=== PATIENT | male | born 1965 | race Caucasian/White ===

== ENCOUNTER 2021-04-11 06:58 | Day surgery (SDC) | payer OTHER, SELFPAY ==
[2021-03-21 13:34] VITALS: BMI 30.8
[2021-04-11] VITALS (7 sets, daily range): BP systolic 113–154; BP diastolic 65–92; PULSE 49–63; RESP 16; TEMP 36.1–36.6; O2SAT 98–100; BMI 30.1
--- NOTE | 2021-04-11 07:00 | HP.PCM_ITS ---
History and Physical Date of Admission: 04/11/21 Date of Service: 03/21/21 Intake Vital Signs 02/28/21 15:11 03/21/21 13:34 03/21/21 16:32 Height 6 ft 1 in 6 ft 1 in Weight: 233 lb 8 oz BMI 30.8 BP 151/101 H 134/89 H Blood Pressure Location Rt brachial Rt brachial Position Sitting Sitting Respiration 16 Pulse 60 Pulse Source Monitor Temp 98.0 F Temp Source Temporal Pulse Oximetry (%) 97 Oxygen Delivery Method room air Intake Visit Reasons: C-Scope Allergies No Known Allergies Allergy (Verified 03/21/21 13:35) Medications gabapentin 300 mg PO TIDCM 07/17/13 [History Confirmed 03/21/21] tramadol 50 mg PO Q6H PRN PRN 07/17/13 [History Confirmed 03/21/21] alogliptin 25 mg tablet 25 mg PO DAILY 03/21/21 [History Confirmed 03/21/21] amoxicillin 875 mg-potassium clavulanate 125 mg tablet 1 tab PO BID 03/21/21 [History Confirmed 03/21/21] ascorbate calcium (vitamin C) 500 mg tablet 500 mg PO BID 03/21/21 [History Confirmed 03/21/21] atorvastatin 40 mg tablet 40 mg PO DAILY 03/21/21 [History Confirmed 03/21/21] carvedilol 25 mg tablet 25 mg PO BID 03/21/21 [History Confirmed 03/21/21] cholecalciferol (vitamin D3) 25 mcg (1,000 unit) capsule 25 mcg PO DAILY 03/21/21 [History Confirmed 03/21/21] montelukast 10 mg tablet 10 mg PO DAILY 03/21/21 [History Confirmed 03/21/21] omeprazole 20 mg tablet,delayed release 20 mg PO DAILY 03/21/21 [History Confirmed 03/21/21] pantoprazole 40 mg tablet,delayed release 40 mg PO DAILY #30 tab 03/21/21 [Rx Confirmed 03/21/21] tamsulosin 0.4 mg capsule 0.4 mg PO DAILY 03/21/21 [History Confirmed 03/21/21] PFSH Medical History Abdominal pain Anxiety Arthritis Barretts esophagus Depression Diabetes Dysphagia Fatigue GERD (gastroesophageal reflux disease) History of back problems History of - (~09/2020) Hx of esophageal ulcer Hypertension Nausea Numbness and tingling SOB (shortness of breath) Surgical History History of back surgery History of colonoscopy (~2017) History of esophagogastroduodenoscopy (EGD) (~2017) History of knee surgery History of mandibular surgery History of repair of hiatal hernia History of tonsillectomy (~1968) Family History Mother Arthritis Heart disease Hypertension CVA (cerebral vascular accident) High blood cholesterol Father Skin cancer Arthritis Brother Arthritis Sister Arthritis Social History Smoking Status: Never smoker alcohol intake: never substance use type: does not use caffeine: Yes what type of physical activity do you participate in: none frequency: does not exercise HPI HPI HPI: ELIANA GALO, is a 56 M who presents to the office today for EGD and colonoscopy. Patient previously had Del Valle's esophagus previously diagnosed. Patient's last EGD was in 2016 did not show Del Valle's at that time. Patient states in December 2017 at the [facility] in [place] patient did have a hiatal hernia repair with esophageal ablation per patient. Patient is on omeprazole 20 mg p.o. daily and states he still has the burning up his esophagus bloated and occasional abdominal pain daily. Patient had a colonoscopy in 2014 which showed a polyp unsure of the exact path per patient benign. Patient denies any family history of colon cancer. Patient states he has bowel movement about every 3 days. States that occasionally can be hard. Patient states he drinks about 5 bottles of 20 ounces of water daily. Unsure how much fiber he gets. Patient did have Covid in September 2020 and got his second dose of them and during vaccine 02/17/21. ROS General General: Yes fatigue; No weight change Cardio Cardiovascular: No chest pain Gastro Gastrointestinal: Yes abdominal pain, No diarrhea, No constipation, No blood in stool, Yes acid reflux, No hemorrhoids, No ulcers, No gallbladder problem and No black,tarry stools Additional Details: Positive nausea, denies vomiting Exam Const General: cooperative, healthy appearing, comfortable and no acute distress Neck Neck: normal visual inspection Resp Effort & Inspection: normal respiratory effort Cardio Rate: regular rate GI Inspection: non-distended Palpation: soft, no guarding and nontender Skin General: no rashes or lesions noted Neuro General: patient oriented x3 Psych Affect: normal affect COVID (Procedure Consent) Procedure Criteria Procedure Criteria: Yes Elective The surgeon/proceduralist and patient have discussed in detail the risk of exposure to and/or potential harm posed by the COVID-19 virus with having a surgery/procedure at this time versus the risk of delaying the surgery/procedure. It is not possible to know either the risk of delaying the surgery or procedure or chance of getting an infection with perfect accuracy, but a joint decision was made between the patient and the surgeon/proceduralist to proceed at this time with the scheduled surgery/procedure as indicated on the consent form. Assessment and Plan Assessment and Plan (1) GERD (gastroesophageal reflux disease): Status: Acute Comment: Also history of Del Valle's status post hiatal hernia repair in 2018 at [facility] in [place] and previous ablation prior to repair (2) Hx of colonic polyps: Status: Acute Plan - Dr. Paige Pitts MD: Discussed with patient we will try to change to Protonix 40 mg p.o. daily from omeprazole 20 mg daily as patient states he has reflux symptoms daily. I have discussed the above with the patient. I have offered the patient EGD and colonoscopy for evaluation. I have explained the risks/benefits of the procedure and described the procedure. I have discussed the risks with the patient, including but not limited to: infection, bleeding, perforation of the GI tract requiring emergency surgery, inability to complete the procedure, injury to any internal organs, complications of anesthesia, etc. - the patient understands and agrees to proceed. I have answered all the patient's questions to the patient's satisfaction and the patient has no further questions. The patient has been given instructions for the colon cleansing preparation. 2 days of clears, moviprep sent to patient already from [facility]. Paige Pitts M.D. Pager: [phone] [facility] [address] [place] [address], [address] [place] [address] Office: [phone] Plan Details Other Medications: New: pantoprazole 40 mg PO DAILY 30 tabs 2RF Other Orders: Orders: Colonoscopy 03/21/21 EGD 03/21/21 Coding Level of Care Code Off vis,new,level 3 Diagnoses GERD (gastroesophageal reflux disease) K21.9 Hx of colonic polyps Z86.010 03/22/21 0844<Electronically signed by Paige Pitts MD>Date Paige Pitts MD
[2021-04-11] MEDS: Lactated Ringers 1,000 ML 100 ML IV (07:56)
[2021-04-11 08:25] LABS: Bedside Glucose 122 mg/dL (70-110)
--- NOTE | 2021-04-11 08:45 | IMM_PTH ---
PATIENT: ELIANA GALO LOC: EN U#:[id number] AGE/SX: 56/M ROOM: RE04/11/[address]: Dr. Paige Pitts MD : 1965 BED: DIS: 04/11/2021 SPEC #: [id number] RECD: 04/11/21 14:08 STATUS: MERLIN REFarnaz #: [id number] JUSTUS: 04/11/21 08:[address]: Paige Pitts DEPT: IMMUNOHISTOCHEMISTRY RECD BY: Beti Cortez ENTERED: 04/11/21 14:09 SP TYPE: IMMUNO OTHR DR: [facility] Tissues: A - Stomach, NOS Procedures: H Pylori (initial) PHYSICIAN & INSTITUTION [place] [id number] SPECIMEN INFORMATION: Tissue Source: A ? Antrum biopsy Clinical Info: GERD, history of colon polyps Specimen Number: [id number] CPT code: 37460 METHODOLOGY: Deparaffinized sections of prefer/formalin-fixed tissue or PAP/DQ stained slides are incubated with monoclonal/polyclonal antibodies/oligonucleotide probes. Localization is made via biotin free immunoperoxidase method. Appropriate controls are performed and reacted as expected. Results on target cell population are indicated in the following table: RESULTS: ANTIBODY / CLONE RESULT Block A H Pylori (polyclonal) negative These tests were developed and their performance characteristics determined by [facility]. They may not have been cleared or approved by the U.S. Food and Drug Administration. The FDA has determined that such clearance or approval is not necessary. INTERPRETATION: A. Antrum biopsy: Negative for Helicobacter pylori organisms. AM:aisha 04/12/2021
--- NOTE | 2021-04-11 08:45 | EGD_PTH ---
PATIENT: ELIANA GALO LOC: EN U#:[id number] AGE/SX: 56/M ROOM: RE04/11/[address]: Dr. Paige Pitts MD : 1965 BED: DIS: 04/11/2021 SPEC #: [id number] RECD: 04/11/21 11:15 STATUS: [facility] CESAR #: [id number] JUSTUS: 04/11/21 08:[address]: Paige Pitts DEPT: SURGICAL PATHOLOGY RECD BY: Elly Camargo ENTERED: 04/11/21 13:52 SP TYPE: EGD BIOPSY SURYA DR: [facility] Tissues: A - Gastric mucous membrane B - Esophagus, NOS C - Descending colon Procedures: Special Stain Group II Surgery Specimen Level IV Alcian Blue/PAS (control) HEADER OPERATION: Colonoscopy, EGD ([facility]) PRE-OP DIAGNOSIS: GERD, history of colonic polyps TISSUE SUBMITTED: A - Antrum biopsy for histo and H. pylori, B - Distal esophagus/GE junction biopsy, C - Descending polyp biopsy MICROSCOPIC DIAGNOSIS A. Gastric antrum, biopsy: Mild chronic gastritis. See comment. B. Distal esophagus/GE junction, biopsy: Gastric mucosa with mild chronic inflammation. No evidence of goblet cell metaplasia. See comment. C. Descending colon polyp, biopsy: Tubular adenoma. AM:aisha 04/12/2021 COMMENT A. The results of immunohistochemistry for Helicobacter pylori will be reported separately ([id number]). B. Alcian blue/PAS stain with matched control supports the above diagnosis. MICROSCOPIC DESCRIPTION Slides are reviewed. GROSS DESCRIPTION A - Received in fixative is one container labeled with the patient's name and designated antrum biopsy. The specimen consists of one irregular fragment of light kennedy soft tissue that measures 0.4 x 0.3 x 0.1 cm. The specimen is totally submitted in one cassette. B - Received in fixative is one container labeled with the patient's name and designated distal esophagus/GE junction biopsy. The specimen consists of one irregular fragment of light kennedy soft tissue that measures 0.4 x 0.3 x 0.1 cm. The specimen is totally submitted in one cassette. C - Received in fixative is one container labeled with the patient's name and designated descending polyp biopsy. The specimen consists of multiple irregular fragments of light kennedy soft tissue that in aggregate measure 1 x 0.2 x 0.1 cm. The specimen is totally submitted in one cassette. / SJ:rg 04/11/21 TC:5 CPT: 06595 x3, 95384
--- NOTE | 2021-04-11 09:30 | OP.EGD_ITS ---
Patient Name: Francois Marquez Procedure Date: 04/11/2021 8:43 AM Date of : 1965 Age: 56 Procedure: Upper GI endoscopy Indications: Dysphagia Providers: Paige Pitts MD Referring MD: [facility] Medicines: Monitored Anesthesia Care Patient Profile: This is a 56 year old male. He is status post laparoscopic antireflux surgery within the past several years. Complications: No immediate complications. Procedure: Pre-Anesthesia Assessment: - Prior to the procedure, a History and Physical was performed, and patient medications and allergies were reviewed. The patient's tolerance of previous anesthesia was also reviewed. The risks and benefits of the procedure and the sedation options and risks were discussed with the patient. All questions were answered, and informed consent was obtained. Prior Anticoagulants: The patient has taken no previous anticoagulant or antiplatelet agents. ASA Grade Assessment: Per anesthesia. After reviewing the risks and benefits, the patient was deemed in satisfactory condition to undergo the procedure. After obtaining informed consent, the endoscope was passed under direct vision. Throughout the procedure, the patient's blood pressure, pulse, and oxygen saturations were monitored continuously. The gastroscope was introduced through the mouth, and advanced to the second part of duodenum. The upper GI endoscopy was accomplished without difficulty. The patient tolerated the procedure well. Scope In: 8:52:18 AM Scope Out: 8:56:52 AM Total Procedure Duration Time 0 hours 4 minutes 34 seconds Findings: The Z-line was irregular and was found 40 cm from the incisors. Biopsies were taken with a cold forceps for histology. Mildly erythematous mucosa without bleeding was found in the gastric antrum. Biopsies were taken with a cold forceps for histology. Biopsies were taken with a cold forceps for Helicobacter pylori cultures. The examined duodenum was normal. The cardia and gastric fundus were normal on retroflexion. Impression: - Z-line irregular, 40 cm from the incisors. Biopsied. - Erythematous mucosa in the antrum. Biopsied. - Normal examined duodenum. Recommendation: - Await pathology results. - Discharge patient to home. - Resume previous diet. - Continue present medications. - Await pathology results. Procedure Code(s): --- Professional --- 20851, Esophagogastroduodenoscopy, flexible, transoral; with biopsy, single or multiple Diagnosis Code(s): --- Professional --- K22.8, Other specified diseases of esophagus K31.89, Other diseases of stomach and duodenum R13.10, Dysphagia, unspecified CPT copyright 2017 [employer]. All rights reserved. The codes documented in this report are preliminary and upon student loan counselor review may be revised to meet current compliance requirements. MD Paige Allen MD 04/11/2021 9:30:23 AM This report has been signed electronically. Number of Addenda: 0 Note Initiated On: 04/11/2021 8:43 AM
--- NOTE | 2021-04-11 09:31 | OP.CCLET_ITS ---
04/11/2021 [facility] Re : Upper GI endoscopy procedure for [facility] This procedure was performed on Sunday, April 11, 2021. My impressions and recommendations are as follows: Impressions : - Z-line irregular, 40 cm from the incisors. Biopsied. - Erythematous mucosa in the antrum. Biopsied. - Normal examined duodenum. Recommendations : - Await pathology results. - Discharge patient to home. - Resume previous diet. - Continue present medications. - Await pathology results. My findings are described in the full procedure note, which is enclosed. If I can be of further assistance, please feel free to contact me at Doctor phone number(s): , Work: . Sincerely, MD Paige Allen MD 04/11/2021 9:30:23 AM This report has been signed electronically.
--- NOTE | 2021-04-11 09:34 | OP.COLON_ITS ---
Patient Name: Francois Marquez Procedure Date: 04/11/2021 8:58 AM Date of : 1965 Age: 56 Procedure: Colonoscopy Indications: High risk colon cancer surveillance: Personal history of colonic polyps Providers: Paige Pitts MD Referring MD: [facility] Medicines: Monitored Anesthesia Care Patient Profile: This is a 56 year old male. He is status post laparoscopic antireflux surgery within the past several years. Last Colonoscopy: 2018. Complications: No immediate complications. Procedure: Pre-Anesthesia Assessment: - Prior to the procedure, a History and Physical was performed, and patient medications and allergies were reviewed. The patient's tolerance of previous anesthesia was also reviewed. The risks and benefits of the procedure and the sedation options and risks were discussed with the patient. All questions were answered, and informed consent was obtained. Prior Anticoagulants: The patient has taken no previous anticoagulant or antiplatelet agents. ASA Grade Assessment: Per anesthesia. After reviewing the risks and benefits, the patient was deemed in satisfactory condition to undergo the procedure. After I obtained informed consent, the scope was passed under direct vision. Throughout the procedure, the patient's blood pressure, pulse, and oxygen saturations were monitored continuously. The Colonoscope was introduced through the anus and advanced to the cecum, identified by the ileocecal valve. The colonoscopy was somewhat difficult due to poor endoscopic visualization. Successful completion of the procedure was aided by lavage. The patient tolerated the procedure well. The quality of the bowel preparation was good except the sigmoid colon was poor. Scope In: 8:59:28 AM Scope Withdrawal Time 0 hours 10 minutes 50 seconds Scope Out: 9:20:08 AM Total Procedure Duration Time 0 hours 20 minutes 40 seconds Findings: The perianal and digital rectal examinations were normal. A less than 5 mm polyp was found in the descending colon. The polyp was sessile. The polyp was removed with a cold biopsy forceps. Resection and retrieval were complete. poor prep in sigmoid and only adequate in rest of colon Impression: - One less than 5 mm polyp in the descending colon, removed with a cold biopsy forceps. Resected and retrieved. Recommendation: - Discharge patient to home. - Resume previous diet. - Continue present medications. - Await pathology results. - Repeat colonoscopy in 2 years for surveillance based on pathology results & poor/adequate prep of colon. Procedure Code(s): --- Professional --- 28832, PT, Colonoscopy, flexible; with biopsy, single or multiple Diagnosis Code(s): --- Professional --- Z86.010, Personal history of colonic polyps D12.4, Benign neoplasm of descending colon CPT copyright 2017 [employer]. All rights reserved. The codes documented in this report are preliminary and upon physics professor review may be revised to meet current compliance requirements. MD Paige Allen MD 04/11/2021 9:34:41 AM This report has been signed electronically. Number of Addenda: 0 Note Initiated On: 04/11/2021 8:58 AM
--- NOTE | 2021-04-11 09:35 | OP.CCLET_ITS ---
04/11/2021 [facility] Re : Colonoscopy procedure for [facility] This procedure was performed on Sunday, April 11, 2021. My impressions and recommendations are as follows: Impressions : - One less than 5 mm polyp in the descending colon, removed with a cold biopsy forceps. Resected and retrieved. Recommendations : - Discharge patient to home. - Resume previous diet. - Continue present medications. - Await pathology results. - Repeat colonoscopy in 2 years for surveillance based on pathology results & poor/adequate prep of colon. My findings are described in the full procedure note, which is enclosed. If I can be of further assistance, please feel free to contact me at Doctor phone number(s): , Work: . Sincerely, MD Paige Allen MD 04/11/2021 9:34:41 AM This report has been signed electronically.
== END 2021-04-11 10:06 | disposition home or self-care (01) ==
LOC: EN 06:58 → AC 06:59
PROVIDERS: Visit Provider Surgery
PROC: 0DJD8ZZ Inspection of Lower Intestinal Tract, Via Natural or Artificial Opening Endoscopic (ICD-10-PCS; CPT 45378; principal; 2021-04-11 08:40)
DX: D12.4 Benign neoplasm of descending colon (principal); K29.50 Unspecified chronic gastritis without bleeding; K21.00 Gastro-esophageal reflux disease with esophagitis, without bleeding; F41.9 Anxiety disorder, unspecified; M19.90 Unspecified osteoarthritis, unspecified site; F32.9 Major depressive disorder, single episode, unspecified; E11.9 Type 2 diabetes mellitus without complications; I10 Essential (primary) hypertension; Z86.010 Personal history of colon polyps; Z79.899 Other long term (current) drug therapy; Z87.891 Personal history of nicotine dependence
CPT/HCPCS: 43239; 45380; 82962; 88305; 88313; 88342; J7120; J2405

== ENCOUNTER 2021-06-16 13:30 | Outpatient (RCR) | payer OTHER, SELFPAY ==
[2021-04-11 07:28] VITALS: BMI 30.1
--- NOTE | 2021-05-02 11:31 | HP.PTEVAL ---
Patient's Visit Information ELIANA GALO is a 56 year old M referred to Physical Therapy by WILBER CASTAÑEDA with a diagnosis of POST LAMINECTOMY SYNDROME. Date of Evaluation: 05/02/21 Physical Therapist: Jacob Mraio, PT, Cert MDT, OCS - Visit Plan Frequency: 2x /Week Duration: 7 WEEKS Plan: PT INTERVETIONS AQUATIC THERAPY FOR DLS,POSTURAL EX'S,BLE FLEXABLITY AND STRENGTHENING,PATIENT EDUCATION - Subjective This 56 y/o male presents to physical therapy with low back pain. Patient has had LBP several years and had lumbar discectomy. Most recently had epidural injection this past Sunday [facility] pain management. MEDS-tramadol. Epidural injection helped and has several injections in past. Location of pain hips lateral hip hamstrings to feet. C/O back spasms ,sharp pain. Occasional tingling in legs. Aggravating driving, bending ,lifting . Alleviating factors walking as long as symptoms to irritated. Pain affects sleeping. Coughing/sneezing -. Bowel/bladder -. Patient pain affects ADL's and housework tasks. Prior to injection pain was a 8/10.Patient has been PT and Aquatics in past. SOCIAL: . VOCATION :DISABILITY - Pain Bilateral Back Pain Intensity (Out of 10): 3 Pain Intensity Range: 10 Bilateral Lower Extremity Pain Intensity (Out of 10): 3 Pain Intensity Range: 10 - Objective POSTURE: WFL. GAIT: reciprocal pattern. NEURO: denies paresthesia/tingling , reflexes 1/3 L3-4,L4-5,L5-S1 1/3. SYMMTIES: align. PALAPTION: tender LS ,erector spinals. MMT: quads/hams right 3+/5,left 4-/5,hip flexion 3+/5 ankle 4-/5. LUMBAR ROM: flexion mod /severe loss, extension mod loss, side glides mod loss. FLEXABLITY: hams mod tight right with + SLR - Special Tests L/S Slump test left side: Negative L/S Slump test right side: Positive L/S Left Straight Leg Raise: Negative L/S Right Straight Leg Raise: Positive Lumbar Standing: Flexion - Mechanical Response: No effect Lumbar Standing: Flexion - Symptoms During Testing: Increases Lumbar Standing: Flexion - Symptoms After Testing: Worse Comments:: BACK Lumbar Standing: Extension - Mechanical Response: No effect Lumbar Standing: Extension - Symptoms During Testing: Increases Lumbar Standing: Extension - Symptoms After Testing: No worse Comments:: BACK Lumbar Standing: Right Side Glides - Mechanical Response: No effect Lumbar Standing: Right Side [place] - Symptoms During Testing: No effect Lumbar Standing: Right Side [place] - Symptoms After Testing: No effect Lumbar Standing: Left Side [place] - Mechanical Response: No effect Lumbar Standing: Left Side [place] - Symptoms During Testing: No effect Lumbar Standing: Left Side [place] - Symptoms After Testing: No effect - Balance/Special Test Scores Oswestry Low Back Score: 28 - Goals Goal 1:: I with Aquatic therapy Goal Time Frame: 6-8 Weeks Goal 2:: Improve posture for ADLS' Goal Time Frame: 6-8 Weeks Goal 3:: Patient increase right strength4-/5 to improve gait. Goal Time Frame: 6-8 Weeks Goal 4:: Patient to improve lumbar ROM for function of recovery Goal Time Frame: 6-8 Weeks Goal 5:: Patient to improve back owestrey score by 5 points or > to improve QOL. Goal Time Frame: 6-8 Weeks - Rehabilitation Potential Physical Therapy Diagnosis: This patient has chronic LBP with h/o lumbar discectomy with pain ,poor lumbar with, +test movements ,positional, affect ADLS' and daily function Rehabilitation Potential: Good - Anticipated Interventions Patient/Client Instruction: Educate patient on: Condition, Plan of Care For the Purpose of:: To decrease pain, To increase ROM, To improve muscle performance and motor function, To improve ability to perform ADL's, To increase tolerance to activity/condition/position, To improve performance and independence with ADL's, To improve ability of physical actions for home/community/work/leisure, To improve health of tissue, To decrease soft tissue restriction, To increase flexibility/ROM Therapeutic Exercise to Include: Strength training, Endurance training, Body mechanics, Postural training, Flexibilty training, In an aquatic setting, Dynamic Lumbar Stabilization Comment: BLE For the Purpose of:: To decrease pain, To increase ROM, To improve muscle performance and motor function, To improve ability to perform ADL's, To increase tolerance to activity/condition/position, To improve performance and independence with ADL's, To improve ability of physical actions for home/community/work/leisure, To improve health of tissue, To decrease soft tissue restriction, To increase flexibility/ROM, To improve ability to perform tasks related to life management Thank you for the opportunity to evaluate your patient. For Medicare and Medicare HMO plans, please review the plan of care and approve it. It will need to be FAXED BACK to us at [phone] for Medicare purposes. For Medicare only, by signing this I certify the plan of care. Please let me know if there are questions or concerns regarding this plan of care. Physician Signature: Date:
--- NOTE | 2021-09-21 08:54 | HP.PTDCNRP_ITS ---
ELIANA GALO was seen in my office for initial evaluation on 05/02/21. The following Plan of Care was established for this patient: Initial Frequency: 2x /Week Initial Duration: 7 WEEKS Patient/Client Instruction: Educate patient on: Condition, Plan of Care For the Purpose of:: To decrease pain, To increase ROM, To improve muscle performance and motor function, To improve ability to perform ADL's, To increase tolerance to activity/condition/position, To improve performance and independence with ADL's, To improve ability of physical actions for home/community/work/leisure, To improve health of tissue, To decrease soft tissue restriction, To increase flexibility/ROM Therapeutic Exercise to Include: Strength training, Endurance training, Body mechanics, Postural training, Flexibilty training, In an aquatic setting, Dynamic Lumbar Stabilization For the Purpose of:: To decrease pain, To increase ROM, To improve muscle performance and motor function, To improve ability to perform ADL's, To increase tolerance to activity/condition/position, To improve performance and independence with ADL's, To improve ability of physical actions for home/community/work/leisure, To improve health of tissue, To decrease soft tissu e restriction, To increase flexibility/ROM, To improve ability to perform tasks related to life management This patient was last seen in our office . Pertinent comments regarding their Physical therapy will appear below: Patient was seen for PT for LBP with Aquatic therapy focusing on DLS ,postural ex's and LE strengthening/flexability with patient doing well in water. At this point I will be discontinuing this patient from physical therapy. I would be happy to see this patient again in the future if found appropriate by the physician. Thank you! Jacob Mario, PT, Cert MDT, OCS Balance/Gait/Functional tests - Balance/Special Test Scores Oswestry Low Back Score: 9
== END 2021-06-16 19:00 | disposition home or self-care (01) ==
LOC: PT 13:30
DX: M54.50 Low back pain, unspecified (principal)
CPT/HCPCS: 97113; 97162